=== PATIENT | male | born 1980 | race Caucasian/White ===

== ENCOUNTER 2022-01-30 16:11 | Emergency (ER) | payer MEDICARE ==
[2022-01-30 17:06] LABS: #Eosinphils 0.1 thou/uL (0.0-0.7); #Lymphocytes 2.5 thou/uL (1.20-3.40); #Monocytes 0.6 thou/uL (0.11-0.59); #Neutrophils 4.7 thou/uL (1.40-6.50); %Basophils 0.6 % (0.0-1.0); %Eosinophils 1.7 % (0.0-10.0); %Lymphocytes 31.2 % (21.0-51.0); %Monocytes 7.3 % (0.0-10.0); %Neutrophils 59.2 % (42.0-75.0); Mean Corpuscular HGB CONC 34.7 g/dL (32.0-36.0); Mean Corpuscular Hemoglobin 30.8 pg (27.0-31.0); Mean Platelet Volume 7.7 fL (7.4-10.4); Platelet Count 270 thou/uL (130-400); Red Blood Cell (RBC) Count 4.87 mill/uL (4.70-6.10); White Blood Cell (WBC) Count 7.9 thou/uL (4.8-10.8)
[2022-01-30] MEDS ORDERED: Morphine 4 MG/ML VIAL ONE (17:32)
[2022-01-30] MEDS ORDERED: Ondansetron PF 4 MG/2 ML Vial ONE (17:32)
[2022-01-30 17:50] LABS: ALT (SGPT) 44 U/L (8-55); AST (SGOT) 22 U/L (5-34); Albumin 4.4 g/dL (3.5-5.0); Alkaline Phosphatase 82 U/L (40-110); Anion Gap 12 mmol/L (10-20); BUN (Urea Nitrogen) 13 mg/dL (8.9-20.6); Bilirubin, Total 0.6 mg/dL (0.2-1.2); CK (CPK) 57 U/L (30-200); Calc. Creatinine Clearance 0 mL/min (70-130); Calcium 8.8 mg/dL (7.8-10.44); Carbon Dioxide 28 mmol/L (22-29); Chloride 101 mmol/L (98-107); Globulin 2.4 g/dL (2.4-3.5); Glucose 198 mg/dL (70-105); Lipase 195 U/L (8-78); Potassium 4.6 mmol/L (3.5-5.1); Protein, Total 6.8 g/dL (6.0-8.3); Sodium 136 mmol/L (136-145)
[2022-01-30] MEDS ORDERED: Ketorolac Tromethamine 30 MG/ML VIAL ONE (18:35)
== END 2022-01-30 18:58 | disposition home or self-care (01) ==
LOC: ERS 16:11
DX: K85.90 Acute pancreatitis without necrosis or infection, unspecified (principal); E11.9 Type 2 diabetes mellitus without complications; F17.220 Nicotine dependence, chewing tobacco, uncomplicated; F17.200 Nicotine dependence, unspecified, uncomplicated
CPT/HCPCS: 36415; 71045; 80053; 82550; 83690; 84484; 85025; 93005; 96374; 96375; J1885; J2270; J2405

== ENCOUNTER 2022-03-07 09:00 | Outpatient (CLI) | payer MEDICARE ==
[2022-03-07 09:18] LABS: Estimated GFR-MDRD - POC Greater than 90
[2022-03-07] MEDS ORDERED: Iopamidol-370 76% 500 ML 1 ML ONE (10:00)
== END 2022-03-07 09:01 | disposition home or self-care (01) ==
LOC: BICCT 09:00
PROVIDERS: ATTEND Internal Medicine
DX: K21.9 Gastro-esophageal reflux disease without esophagitis (principal); K85.90 Acute pancreatitis without necrosis or infection, unspecified; R16.0 Hepatomegaly, not elsewhere classified
CPT/HCPCS: 74177; 82565; Q9967

== ENCOUNTER 2022-05-08 00:04 | Inpatient (IN) | payer MEDICARE, OTHER ==
[2022-05-08] MEDS ORDERED: Morphine 4 MG/ML VIAL ONE (02:13)
[2022-05-08] MEDS ORDERED: Acetaminophen 650 MG Suppository PR PRN (02:23)
[2022-05-08] MEDS ORDERED: Promethazine HCl 25 MG/ML VIAL IM PRN (02:23)
[2022-05-08] MEDS ORDERED: Ondansetron ODT 4 MG TAB PO PRN (02:23)
[2022-05-08] MEDS ORDERED: Lorazepam 1 MG TAB PO PRN (02:28)
[2022-05-08] MEDS ORDERED: Morphine 4 MG/ML VIAL SLOW IVP SCH (02:30)
[2022-05-08] MEDS ORDERED: Ketorolac Tromethamine 30 MG/ML VIAL IVP PRN (02:30)
[2022-05-08] MEDS ORDERED: Morphine 4 MG/ML VIAL SLOW IVP PRN (02:36)
[2022-05-08] MEDS ORDERED: Pantoprazole 40 MG VIAL IVP SCH (02:45)
[2022-05-08] MEDS ORDERED: DULoxetine 30 MG CAP PO SCH (02:45)
[2022-05-08 02:47] VITALS: BMI 33.9
[2022-05-08] MEDS ORDERED: Propranolol 60 MG TAB PO SCH (03:00)
[2022-05-08] MEDS: clonazePAM 1 MG TAB PO PRN ×2 (03:12→13:05)
[2022-05-08] MEDS: Sodium Chloride 0.9% 1,000 ML IV SCH ×6 (03:16→23:45)
[2022-05-08] MEDS ORDERED: Aspirin 325 MG TAB PO SCH (04:00)
[2022-05-08] MEDS: Nitroglycerin 0.4 MG TAB (25 Tab Bottle) SL PRN ×2 (04:19→13:10)
[2022-05-08 04:27] LABS: #Basophils 0.1 thou/uL (0.0-0.2); #Eosinphils 0.2 thou/uL (0.0-0.7); #Lymphocytes 3.1 thou/uL (1.20-3.40); #Monocytes 0.6 thou/uL (0.11-0.59); #Neutrophils 4.9 thou/uL (1.40-6.50); %Basophils 0.8 % (0.0-1.0); %Eosinophils 1.7 % (0.0-10.0); %Lymphocytes 35.1 % (21.0-51.0); %Monocytes 6.3 % (0.0-10.0); Hemoglobin 15.1 g/dL (14.0-18.0); Mean Corpuscular HGB CONC 36.1 g/dL (32.0-36.0); Mean Corpuscular Hemoglobin 31.7 pg (27.0-31.0); Mean Corpuscular Volume 87.7 fL (78.0-98.0); Mean Platelet Volume 7.6 fL (7.4-10.4); Platelet Count 240 thou/uL (130-400); RBC Distribution Width 11.1 % (11.5-14.5); Red Blood Cell (RBC) Count 4.77 mill/uL (4.70-6.10); White Blood Cell (WBC) Count 8.8 thou/uL (4.8-10.8)
[2022-05-08 04:34] LABS: Anion Gap 14 mmol/L (10-20); BUN (Urea Nitrogen) 11 mg/dL (8.9-20.6); Calc. Creatinine Clearance 167 mL/min (70-130); Calcium 8.4 mg/dL (7.8-10.44); Carbon Dioxide 25 mmol/L (22-29); Chloride 103 mmol/L (98-107); Glucose 174 mg/dL (70-105); Potassium 3.7 mmol/L (3.5-5.1); Sodium 138 mmol/L (136-145); Triglycerides 315 mg/dL (Less than 150)
[2022-05-08 04:39] LABS: Troponin I Less than 0.010 ng/mL (< 0.028)
[2022-05-08] MEDS ORDERED: Dextrose 50% Abboject 50 ML SYRINGE SLOW IVP PRN (05:08)
[2022-05-08] MEDS ORDERED: Dextrose 5% in Water 1,000 ML IV PRN (05:08)
[2022-05-08] MEDS: Enoxaparin Sodium 40 MG/0.4 ML SYRINGE SC SCH (10:31)
[2022-05-08] MEDS: Fentanyl 100 MCG/2 ML VIAL SLOW IVP PRN ×4 (13:01→21:30)
[2022-05-08] MEDS: Acetaminophen 325 MG TAB PO PRN ×2 (14:07→19:02)
[2022-05-08] MEDS: HumaLOG 300 UNITS/3 ML VIAL SC PRN (14:10)
[2022-05-08] MEDS: DULoxetine 30 MG CAP PO SCH (20:58)
[2022-05-08] MEDS: Propranolol 60 MG TAB PO SCH (20:58)
[2022-05-08] MEDS ORDERED: Zolpidem Tartrate 5 MG TAB PO SCH (22:45)
[2022-05-09] MEDS: Fentanyl 100 MCG/2 ML VIAL SLOW IVP PRN ×7 (00:19→21:36)
[2022-05-09] MEDS: Acetaminophen 325 MG TAB PO PRN ×4 (00:24→21:28)
[2022-05-09] MEDS: Sodium Chloride 0.9% 1,000 ML IV SCH ×5 (04:00→21:42)
[2022-05-09 05:33] LABS: #Eosinphils 0.2 thou/uL (0.0-0.7); #Monocytes 0.5 thou/uL (0.11-0.59); #Neutrophils 3.7 thou/uL (1.40-6.50); %Basophils 0.4 % (0.0-1.0); %Eosinophils 2.8 % (0.0-10.0); %Lymphocytes 31.2 % (21.0-51.0); %Monocytes 7.2 % (0.0-10.0); %Neutrophils 58.5 % (42.0-75.0); Hemoglobin 14.1 g/dL (14.0-18.0); Mean Corpuscular HGB CONC 35.4 g/dL (32.0-36.0); Mean Corpuscular Hemoglobin 31.4 pg (27.0-31.0); Mean Corpuscular Volume 88.8 fL (78.0-98.0); Mean Platelet Volume 7.3 fL (7.4-10.4); Platelet Count 217 thou/uL (130-400); Red Blood Cell (RBC) Count 4.48 mill/uL (4.70-6.10); White Blood Cell (WBC) Count 6.3 thou/uL (4.8-10.8)
[2022-05-09] MEDS: clonazePAM 1 MG TAB PO PRN ×2 (05:36→21:28)
[2022-05-09 05:59] LABS: ALT (SGPT) 65 U/L (8-55); AST (SGOT) 46 U/L (5-34); Albumin 3.6 g/dL (3.5-5.0); Alkaline Phosphatase 66 U/L (40-110); Bilirubin, Direct 0.2 mg/dL (0.1-0.3); Bilirubin, Total 0.7 mg/dL (0.2-1.2); Phosphorus 3.5 mg/dL (2.3-4.7); Protein, Total 6.2 g/dL (6.0-8.3)
[2022-05-09 06:00] LABS: Anion Gap 11 mmol/L (10-20); BUN (Urea Nitrogen) 5 mg/dL (8.9-20.6); Calc. Creatinine Clearance 193 mL/min (70-130); Calcium 8.3 mg/dL (7.8-10.44); Carbon Dioxide 25 mmol/L (22-29); Chloride 104 mmol/L (98-107); Glucose 155 mg/dL (70-105); Lipase 47 U/L (8-78); Magnesium 1.7 mg/dL (1.6-2.6); Potassium 3.8 mmol/L (3.5-5.1); Sodium 136 mmol/L (136-145)
[2022-05-09] MEDS: Enoxaparin Sodium 40 MG/0.4 ML SYRINGE SC SCH (08:08)
[2022-05-09] MEDS: Pantoprazole 40 MG VIAL IVP SCH (08:08)
[2022-05-09] MEDS ORDERED: Fentanyl 100 MCG/2 ML VIAL ONE (12:02)
[2022-05-09] MEDS ORDERED: PROPOFOL 200 MG/20 ML VIAL ONE (12:05)
[2022-05-09] MEDS ORDERED: Lidocaine 1% PF 5 ML VIAL ONE (12:05)
[2022-05-09] MEDS: Nitroglycerin 0.4 MG TAB (25 Tab Bottle) SL PRN (14:39)
[2022-05-09 18:34] LABS: Troponin I Less than 0.010 ng/mL (< 0.028)
[2022-05-09] MEDS: Propranolol 60 MG TAB PO SCH (21:27)
[2022-05-09] MEDS: DULoxetine 30 MG CAP PO SCH (21:27)
[2022-05-10] MEDS: Fentanyl 100 MCG/2 ML VIAL SLOW IVP PRN ×3 (01:17→11:15)
[2022-05-10] MEDS: Sodium Chloride 0.9% 1,000 ML IV SCH ×4 (02:30→18:33)
[2022-05-10 05:18] LABS: #Eosinphils 0.2 thou/uL (0.0-0.7); #Lymphocytes 2.1 thou/uL (1.20-3.40); #Monocytes 0.6 thou/uL (0.11-0.59); #Neutrophils 3.1 thou/uL (1.40-6.50); %Basophils 0.5 % (0.0-1.0); %Eosinophils 3.3 % (0.0-10.0); %Lymphocytes 34.8 % (21.0-51.0); %Monocytes 9.3 % (0.0-10.0); %Neutrophils 52.1 % (42.0-75.0); Hemoglobin 14.3 g/dL (14.0-18.0); Mean Corpuscular HGB CONC 35.4 g/dL (32.0-36.0); Mean Corpuscular Hemoglobin 31.8 pg (27.0-31.0); Mean Platelet Volume 7.3 fL (7.4-10.4); Platelet Count 225 thou/uL (130-400); RBC Distribution Width 11.2 % (11.5-14.5); Red Blood Cell (RBC) Count 4.49 mill/uL (4.70-6.10); White Blood Cell (WBC) Count 5.9 thou/uL (4.8-10.8)
[2022-05-10 05:42] LABS: ALT (SGPT) 60 U/L (8-55); AST (SGOT) 32 U/L (5-34); Albumin 3.6 g/dL (3.5-5.0); Alkaline Phosphatase 62 U/L (40-110); Anion Gap 14 mmol/L (10-20); BUN (Urea Nitrogen) Less than 4 mg/dL (8.9-20.6); Bilirubin, Total 0.5 mg/dL (0.2-1.2); Calc. Creatinine Clearance 181 mL/min (70-130); Carbon Dioxide 21 mmol/L (22-29); Chloride 106 mmol/L (98-107); Globulin 2.4 g/dL (2.4-3.5); Glucose 190 mg/dL (70-105); Lipase 66 U/L (8-78); Sodium 137 mmol/L (136-145)
[2022-05-10] MEDS: Acetaminophen 325 MG TAB PO PRN (11:13)
[2022-05-10] MEDS: Pantoprazole 40 MG VIAL IVP SCH (11:19)
[2022-05-10] MEDS: Enoxaparin Sodium 40 MG/0.4 ML SYRINGE SC SCH (11:23)
[2022-05-10] MEDS ORDERED: Fioricet 325/50/40 mg Tablet PO PRN (11:31)
[2022-05-10] MEDS: HumaLOG 300 UNITS/3 ML VIAL SC PRN ×2 (13:22→18:15)
[2022-05-10] MEDS: Morphine 4 MG/ML VIAL SLOW IVP SCH ×2 (17:15→20:39)
[2022-05-10] MEDS: clonazePAM 1 MG TAB PO PRN (18:12)
[2022-05-10] MEDS: Propranolol 60 MG TAB PO SCH (20:34)
[2022-05-10] MEDS: Famotidine 20 MG TAB PO SCH (20:34)
[2022-05-10] MEDS: DULoxetine 30 MG CAP PO SCH (20:34)
[2022-05-10] MEDS ORDERED: Lorazepam 2 MG/ML VIAL SLOW IVP SCH (21:45)
[2022-05-11] MEDS: Morphine 4 MG/ML VIAL SLOW IVP SCH ×9 (00:06→23:55)
[2022-05-11] MEDS: Sodium Chloride 0.9% 1,000 ML IV SCH ×5 (00:06→23:00)
[2022-05-11] MEDS: Acetaminophen 325 MG TAB PO PRN ×2 (03:13→14:34)
[2022-05-11] MEDS: Ondansetron PF 4 MG/2 ML Vial IVP PRN ×2 (03:13→15:42)
[2022-05-11 06:13] LABS: #Eosinphils 0.2 thou/uL (0.0-0.7); #Lymphocytes 2.4 thou/uL (1.20-3.40); #Monocytes 0.7 thou/uL (0.11-0.59); #Neutrophils 5.5 thou/uL (1.40-6.50); %Basophils 0.5 % (0.0-1.0); %Eosinophils 2.2 % (0.0-10.0); %Monocytes 7.7 % (0.0-10.0); %Neutrophils 62.7 % (42.0-75.0); Hemoglobin 15.2 g/dL (14.0-18.0); Mean Corpuscular HGB CONC 35.9 g/dL (32.0-36.0); Mean Platelet Volume 7.1 fL (7.4-10.4); Platelet Count 249 thou/uL (130-400); RBC Distribution Width 11.2 % (11.5-14.5); Red Blood Cell (RBC) Count 4.75 mill/uL (4.70-6.10); White Blood Cell (WBC) Count 8.8 thou/uL (4.8-10.8)
[2022-05-11 06:34] LABS: Anion Gap 14 mmol/L (10-20); BUN (Urea Nitrogen) 4 mg/dL (8.9-20.6); Calc. Creatinine Clearance 186 mL/min (70-130); Calcium 8.8 mg/dL (7.8-10.44); Carbon Dioxide 23 mmol/L (22-29); Chloride 102 mmol/L (98-107); Glucose 189 mg/dL (70-105); Lipase 43 U/L (8-78); Potassium 4.2 mmol/L (3.5-5.1); Sodium 135 mmol/L (136-145)
[2022-05-11] MEDS: clonazePAM 1 MG TAB PO PRN (09:50)
[2022-05-11] MEDS: Famotidine 20 MG TAB PO SCH ×2 (09:51→20:15)
[2022-05-11] MEDS: Enoxaparin Sodium 40 MG/0.4 ML SYRINGE SC SCH (09:51)
[2022-05-11] MEDS: clonazePAM 1 MG TAB PO SCH ×2 (15:40→20:15)
[2022-05-11] MEDS: HumaLOG 300 UNITS/3 ML VIAL SC PRN ×2 (17:54→20:14)
[2022-05-11] MEDS: DULoxetine 30 MG CAP PO SCH (20:15)
[2022-05-11] MEDS: Propranolol 60 MG TAB PO SCH (20:45)
[2022-05-12] MEDS: Sodium Chloride 0.9% 1,000 ML IV SCH ×6 (03:06→23:37)
[2022-05-12] MEDS: Morphine 4 MG/ML VIAL SLOW IVP SCH ×9 (03:06→23:37)
[2022-05-12 05:44] LABS: #Eosinphils 0.2 thou/uL (0.0-0.7); #Lymphocytes 2.2 thou/uL (1.20-3.40); #Monocytes 0.6 thou/uL (0.11-0.59); #Neutrophils 2.8 thou/uL (1.40-6.50); %Basophils 0.7 % (0.0-1.0); %Eosinophils 2.8 % (0.0-10.0); %Lymphocytes 38.5 % (21.0-51.0); %Monocytes 9.8 % (0.0-10.0); %Neutrophils 48.2 % (42.0-75.0); Hemoglobin 14.1 g/dL (14.0-18.0); Mean Corpuscular HGB CONC 34.9 g/dL (32.0-36.0); Mean Corpuscular Hemoglobin 31.2 pg (27.0-31.0); Mean Corpuscular Volume 89.4 fL (78.0-98.0); Mean Platelet Volume 7.3 fL (7.4-10.4); Platelet Count 235 thou/uL (130-400); RBC Distribution Width 11.2 % (11.5-14.5); Red Blood Cell (RBC) Count 4.51 mill/uL (4.70-6.10); White Blood Cell (WBC) Count 5.7 thou/uL (4.8-10.8)
[2022-05-12 06:07] LABS: ALT (SGPT) 82 U/L (8-55); AST (SGOT) 48 U/L (5-34); Albumin 3.6 g/dL (3.5-5.0); Alkaline Phosphatase 73 U/L (40-110); Anion Gap 11 mmol/L (10-20); BUN (Urea Nitrogen) 4 mg/dL (8.9-20.6); Bilirubin, Total 0.4 mg/dL (0.2-1.2); Calc. Creatinine Clearance 181 mL/min (70-130); Calcium 8.6 mg/dL (7.8-10.44); Carbon Dioxide 25 mmol/L (22-29); Chloride 106 mmol/L (98-107); Globulin 2.6 g/dL (2.4-3.5); Glucose 192 mg/dL (70-105); Potassium 4.4 mmol/L (3.5-5.1); Protein, Total 6.2 g/dL (6.0-8.3); Sodium 138 mmol/L (136-145)
[2022-05-12] MEDS: Enoxaparin Sodium 40 MG/0.4 ML SYRINGE SC SCH (09:05)
[2022-05-12] MEDS: clonazePAM 1 MG TAB PO SCH ×3 (09:05→20:32)
[2022-05-12] MEDS: Famotidine 20 MG TAB PO SCH ×2 (09:06→20:31)
[2022-05-12] MEDS ORDERED: Lidocaine 1% w/Epinephrine 1:100K 20 ML VIAL ONE (10:04)
[2022-05-12] MEDS ORDERED: Bupivacaine 0.25% HCL 30 ML VIAL ONE (10:04)
[2022-05-12] MEDS ORDERED: Iopamidol 30 ML ONE (10:04)
[2022-05-12] MEDS ORDERED: Meperidine HCl/PF 25 MG/ML VIAL ONE (10:11)
[2022-05-12] MEDS ORDERED: fentaNYL Citrate/PF 100 MCG/2 ML SYRINGE ONE (10:11)
[2022-05-12] MEDS ORDERED: SUGAMMADEX SODIUM 200 MG/2 ML VIAL ONE (10:12)
[2022-05-12] MEDS ORDERED: Famotidine/PF 20 mg/2ml Vial ONE (10:12)
[2022-05-12] MEDS ORDERED: Bupivacaine PF 0.5% 30 ML VIAL ONE (10:13)
[2022-05-12] MEDS ORDERED: Midazolam HCl 2 mg/2 ml Vial ONE (10:14)
[2022-05-12] MEDS ORDERED: CEFAZOLIN 2 GM VIAL ONE (10:24)
[2022-05-12] MEDS ORDERED: Sodium Chloride 0.9% 0 ML ONE (10:24)
[2022-05-12] MEDS ORDERED: Sodium Chloride 0.9% 100 ML ONE (10:24)
[2022-05-12] MEDS ORDERED: ePHEDrine 50 MG/ML VIAL ONE (10:32)
[2022-05-12] MEDS ORDERED: Esmolol 100 MG/10 ML VIAL ONE (10:32)
[2022-05-12] MEDS ORDERED: Ketorolac Tromethamine 30 MG/ML VIAL ONE (10:32)
[2022-05-12] MEDS ORDERED: Dexamethasone 20 MG/5 ML VIAL ONE (10:32)
[2022-05-12] MEDS ORDERED: Metoclopramide HCl 10 MG/2 ML VIAL ONE (10:32)
[2022-05-12] MEDS ORDERED: PROPOFOL 200 MG/20 ML VIAL ONE (10:32)
[2022-05-12] MEDS ORDERED: Ondansetron PF 4 MG/2 ML Vial ONE (10:32)
[2022-05-12] MEDS ORDERED: Rocuronium Bromide 10 MG/ML (10ML VIAL) ONE (10:32)
[2022-05-12] MEDS ORDERED: Glycopyrrolate 0.2 MG/ML 5 ML SYRINGE ONE (10:32)
[2022-05-12] MEDS ORDERED: Lidocaine 1% PF 5 ML VIAL ONE (10:32)
[2022-05-12] MEDS ORDERED: Promethazine HCl 25 MG/ML VIAL IM PRN (11:35)
[2022-05-12] MEDS ORDERED: Meperidine HCl/PF 25 MG/ML VIAL SLOW IVP PRN (11:35)
[2022-05-12] MEDS ORDERED: Ondansetron HCl/PF 4 MG/2 ML Vial IVP PRN (11:35)
[2022-05-12] MEDS ORDERED: Promethazine HCl 25 MG/ML VIAL IVPB PRN (11:35)
[2022-05-12] MEDS ORDERED: hydrALAZINE 20 MG/ML VIAL ONE (12:01)
[2022-05-12] MEDS ORDERED: Fentanyl 100 MCG/2 ML VIAL ONE ×2 (12:36→13:07)
[2022-05-12] MEDS: HumaLOG 300 UNITS/3 ML VIAL SC PRN ×2 (18:20→23:43)
[2022-05-12] MEDS: DULoxetine 30 MG CAP PO SCH (20:31)
[2022-05-12] MEDS: Propranolol 60 MG TAB PO SCH (20:31)
[2022-05-13] MEDS: Morphine 4 MG/ML VIAL SLOW IVP SCH ×4 (03:48→09:43)
[2022-05-13] MEDS: Sodium Chloride 0.9% 1,000 ML IV SCH (05:27)
[2022-05-13] MEDS: HumaLOG 300 UNITS/3 ML VIAL SC PRN ×2 (06:22→11:17)
[2022-05-13] MEDS: Enoxaparin Sodium 40 MG/0.4 ML SYRINGE SC SCH (09:16)
[2022-05-13] MEDS: clonazePAM 1 MG TAB PO SCH ×2 (09:16→14:03)
[2022-05-13] MEDS: Famotidine 20 MG TAB PO SCH (09:16)
[2022-05-13] MEDS ORDERED: Ketorolac Tromethamine 10 MG TAB PO SCH (12:00)
[2022-05-13] MEDS ORDERED: HYDROcodone/Acetaminophen 5/325 mg Tablet PO PRN ×2 (12:11)
[2022-05-13 12:18] VITALS: BP 129/77; TEMP 98.2
[2022-05-13] MEDS ORDERED: Dextroamphetamine/Amphetamine [Adderall] 20 MG Tablet PO SCH (13:00)
[2022-05-13 13:37] LABS: ANA Symphony (Qualitative) Negative (Negative); ANA Symphony (Quantitative) 0.2 Ratio (< 0.7 Negative); dsDNA IgG Antibody 1.8 IU/mL (<10 Negative)
[2022-05-13] MEDS ORDERED: metFORMIN 500 MG TAB PO SCH (17:00)
[2022-05-14] MEDS ORDERED: Citrucel 500 MG TAB PO SCH (09:00)
[2022-05-14] MEDS ORDERED: Polyethylene Glycol 3350 17 GM Packet PO SCH (09:00)
== END 2022-05-13 15:46 | disposition home or self-care (01) | DRG 419 ==
LOC: MSONC 00:04
PROVIDERS: ADMIT Internal Medicine; ATTEND Internal Medicine
PROC: 0DB98ZX Excision of Duodenum, Via Natural or Artificial Opening Endoscopic, Diagnostic (ICD-10-PCS; 2022-05-09)
PROC: 0FT44ZZ Resection of Gallbladder, Percutaneous Endoscopic Approach (ICD-10-PCS; principal; 2022-05-12)
PROC: BF10YZZ Fluoroscopy of Bile Ducts using Other Contrast (ICD-10-PCS; 2022-05-12)
DX: K85.10 Biliary acute pancreatitis without necrosis or infection (principal); Z20.822 Contact with and (suspected) exposure to COVID-19; F43.10 Post-traumatic stress disorder, unspecified; K21.9 Gastro-esophageal reflux disease without esophagitis; E11.9 Type 2 diabetes mellitus without complications; K76.0 Fatty (change of) liver, not elsewhere classified; E66.9 Obesity, unspecified; F41.0 Panic disorder [episodic paroxysmal anxiety]; E78.1 Pure hyperglyceridemia; F41.9 Anxiety disorder, unspecified; G89.4 Chronic pain syndrome; F32.A Depression, unspecified; G43.909 Migraine, unspecified, not intractable, without status migrainosus; Z88.2 Allergy status to sulfonamides; Z88.5 Allergy status to narcotic agent; Z88.8 Allergy status to other drugs, medicaments and biological substances; Z88.1 Allergy status to other antibiotic agents; Z79.84 Long term (current) use of oral hypoglycemic drugs; Z79.899 Other long term (current) drug therapy; Z68.33 Body mass index [BMI] 33.0-33.9, adult
CPT/HCPCS: 36415; 36416; 47532; 71045; 80048; 80053; 80076; 82787; 83690; 83735; 84100; 84478; 84484; 85025; 86038; 86225; 88304; 88305; 93005; 93010; 94760; C1713; C9113; J0360; J0690; J1100; J1650; J1815; J1885; J2060; J2175; J2250; J2270; J2405; J2704; J2765; J3010; J3490; J7050; Q9967; S0020; S0028; U0003; U0005

== ENCOUNTER 2022-06-17 14:42 | Inpatient (IN) | payer MEDICARE, OTHER ==
[~2022-06-17 14:42] MED LIST: Iopamidol-370 76% 500 ML 1 ML ONE
[2022-06-17] MEDS ORDERED: Morphine 4 MG/ML VIAL ONE (15:10)
[2022-06-17] MEDS ORDERED: Ondansetron PF 4 MG/2 ML Vial ONE (15:10)
[2022-06-17 15:27] LABS: #Lymphocytes 1.3 thou/uL (1.20-3.40); #Monocytes 0.3 thou/uL (0.11-0.59); #Neutrophils 9.3 thou/uL (1.40-6.50); %Basophils 0.4 % (0.0-1.0); %Eosinophils 0.1 % (0.0-10.0); %Lymphocytes 11.8 % (21.0-51.0); %Monocytes 2.8 % (0.0-10.0); Mean Corpuscular HGB CONC 33.9 g/dL (32.0-36.0); Mean Corpuscular Hemoglobin 30.8 pg (27.0-31.0); Mean Corpuscular Volume 91.1 fL (78.0-98.0); Mean Platelet Volume 7.9 fL (7.4-10.4); Platelet Count 379 thou/uL (130-400); RBC Distribution Width 12.2 % (11.5-14.5)
[2022-06-17 15:38] LABS: ALT (SGPT) 72 U/L (8-55); AST (SGOT) 36 U/L (5-34); Albumin 5.2 g/dL (3.5-5.0); Alkaline Phosphatase 108 U/L (40-110); Anion Gap 22 mmol/L (10-20); BUN (Urea Nitrogen) 17 mg/dL (8.9-20.6); Bilirubin, Total 0.5 mg/dL (0.2-1.2); Calc. Creatinine Clearance 0 mL/min (70-130); Carbon Dioxide 17 mmol/L (22-29); Chloride 100 mmol/L (98-107); Estimated GFR 60; Globulin 3.1 g/dL (2.4-3.5); Glucose 454 mg/dL (70-105); Lipase 55 U/L (8-78); Magnesium 2.2 mg/dL (1.6-2.6); Potassium 4.9 mmol/L (3.5-5.1); Protein, Total 8.3 g/dL (6.0-8.3); Sodium 134 mmol/L (136-145)
[2022-06-17 15:43] LABS: Bilirubin Negative (Negative); Blood, Urine Negative (Negative); Clarity Clear (Clear); Glucose, Urine (Dipstick) Greater than 1000 mg/dL (Negative); Ketone, Urine Negative (Negative); Leukocyte Negative Leu/uL (Negative); Nitrite Negative (Negative); Protein, Urine (Dipstick) Negative (Neg-Trace); Specific Gravity, Urine 1.028 (1.002-1.036); Urobilinogen Normal mg/dL (Less than 2)
[2022-06-17 15:44] LABS: Actual Bicarbonate (HCO3v) 21 mEq/L (22-28); Base Excess -6.2 mEq/L (-2.0 to +3.0); Calcium, Ionized (venous) 1.15 mmol/L (1.16-1.32); Chloride (VBG) 101 mmol/L (98-106); Hemoglobin (Hb) 16.3 g/dL (13.2-17.3); Potassium (VBG) 4.79 mmol/L (3.70-5.30); Sodium 134.9 mmol/L (133-146); pH (venous) 7.28 (7.32-7.43)
[2022-06-17 15:48] LABS: Phosphorus 3.4 mg/dL (2.3-4.7)
[2022-06-17] MEDS ORDERED: Piperacillin/Tazobactam 3.375 GM VIAL ONE (16:29)
[2022-06-17] MEDS ORDERED: NS 0.9% w/ 20 MEQ KCL 1,000 ML ONE ×2 (16:29→18:46)
[2022-06-17] MEDS ORDERED: Sodium Chloride 0.9% 100 ML ONE (16:30)
[2022-06-17] MEDS ORDERED: INSULIN REGULAR IN 0.9 % NACL 100 UNIT/100 ML BAG ONE (16:32)
[2022-06-17] MEDS ORDERED: Acetaminophen 325 MG TAB PO PRN (18:38)
[2022-06-17 18:41] LABS: Lactic Acid 2.3 mmol/L (0.5-2.2)
[2022-06-17] MEDS ORDERED: HYDROcodone/Acetaminophen 10/325 mg Tablet ONE (19:34)
[2022-06-17] MEDS ORDERED: Nicotine 14 MG PATCH ONE (19:36)
[2022-06-17] MEDS: HYDROcodone/Acetaminophen 10/325 mg Tablet PO PRN ×2 (19:39→23:39)
[2022-06-17] MEDS: Nicotine 14 MG PATCH TD SCH (19:40)
[2022-06-17] MEDS: Sodium Chloride 0.9% 1,000 ML IV SCH (20:09)
[2022-06-17] MEDS ORDERED: Dextrose 50% Abboject 50 ML SYRINGE SLOW IVP PRN (21:05)
[2022-06-17] MEDS ORDERED: Dextrose 5% in Water 1,000 ML IV PRN (21:05)
[2022-06-17 21:29] LABS: SARS-CoV-2 NAA Rapid Test Not Detected (NotDetected)
[2022-06-17 22:53] LABS: Anion Gap 14 mmol/L (10-20); BUN (Urea Nitrogen) 11 mg/dL (8.9-20.6); Calc. Creatinine Clearance 174 mL/min (70-130); Calcium 8.5 mg/dL (7.8-10.44); Carbon Dioxide 22 mmol/L (22-29); Chloride 108 mmol/L (98-107); Estimated GFR 111; Glucose 152 mg/dL (70-105); Sodium 140 mmol/L (136-145)
[2022-06-17] MEDS ORDERED: Aripiprazole 10 MG TAB PO SCH (23:15)
[2022-06-17] MEDS: clonazePAM 1 MG TAB PO PRN (23:33)
[2022-06-17] MEDS: Heparin 5,000 UNITS/ML VIAL SC SCH (23:33)
[2022-06-18] MEDS: Sodium Chloride 0.9% 1,000 ML IV SCH ×2 (05:30→15:08)
[2022-06-18 06:49] LABS: #Eosinphils 0.1 thou/uL (0.0-0.7); #Lymphocytes 2.5 thou/uL (1.20-3.40); #Monocytes 0.5 thou/uL (0.11-0.59); #Neutrophils 4.9 thou/uL (1.40-6.50); %Basophils 0.5 % (0.0-1.0); %Eosinophils 1.1 % (0.0-10.0); %Lymphocytes 31.3 % (21.0-51.0); %Monocytes 6.6 % (0.0-10.0); %Neutrophils 60.4 % (42.0-75.0); Hemoglobin 13.2 g/dL (14.0-18.0); Mean Corpuscular HGB CONC 34.1 g/dL (32.0-36.0); Mean Corpuscular Hemoglobin 31.3 pg (27.0-31.0); Mean Corpuscular Volume 91.7 fL (78.0-98.0); Platelet Count 271 thou/uL (130-400); Red Blood Cell (RBC) Count 4.23 mill/uL (4.70-6.10); White Blood Cell (WBC) Count 8.1 thou/uL (4.8-10.8)
[2022-06-18 06:52] LABS: ALT (SGPT) 47 U/L (8-55); AST (SGOT) 25 U/L (5-34); Albumin 3.7 g/dL (3.5-5.0); Alkaline Phosphatase 61 U/L (40-110); Anion Gap 16 mmol/L (10-20); BUN (Urea Nitrogen) 9 mg/dL (8.9-20.6); Bilirubin, Total 0.6 mg/dL (0.2-1.2); Calc. Creatinine Clearance 182 mL/min (70-130); Calcium 8.5 mg/dL (7.8-10.44); Carbon Dioxide 21 mmol/L (22-29); Chloride 107 mmol/L (98-107); Estimated GFR 112; Globulin 2.4 g/dL (2.4-3.5); Glucose 115 mg/dL (70-105); Potassium 3.8 mmol/L (3.5-5.1); Protein, Total 6.1 g/dL (6.0-8.3); Sodium 140 mmol/L (136-145)
[2022-06-18] MEDS: HYDROcodone/Acetaminophen 10/325 mg Tablet PO PRN ×3 (07:43→21:29)
[2022-06-18] MEDS ORDERED: Enoxaparin Sodium 40 MG/0.4 ML SYRINGE SC SCH (09:00)
[2022-06-18] MEDS: Heparin 5,000 UNITS/ML VIAL SC SCH ×3 (09:26→21:30)
[2022-06-18] MEDS ORDERED: Morphine 4 MG/ML VIAL SLOW IVP SCH (10:00)
[2022-06-18 10:24] VITALS: BMI 34.0
[2022-06-18] MEDS ORDERED: DULoxetine 30 MG CAP PO SCH (21:00)
[2022-06-18] MEDS ORDERED: Aripiprazole 10 MG TAB PO SCH ×2 (21:00)
[2022-06-18] MEDS: Nicotine 14 MG PATCH TD SCH (21:28)
[2022-06-18] MEDS: clonazePAM 1 MG TAB PO PRN (21:29)
[2022-06-18] MEDS: Insulin Glargine 30 UNITS/0.3 ML VIAL SC SCH (21:30)
[2022-06-19] MEDS: Sodium Chloride 0.9% 1,000 ML IV SCH ×2 (00:05→08:30)
[2022-06-19] MEDS: HYDROcodone/Acetaminophen 10/325 mg Tablet PO PRN ×2 (05:02→11:52)
[2022-06-19] MEDS: HumaLOG 300 UNITS/3 ML VIAL SC PRN ×2 (05:03→11:53)
[2022-06-19 06:10] LABS: #Eosinphils 0.1 thou/uL (0.0-0.7); #Monocytes 0.4 thou/uL (0.11-0.59); #Neutrophils 2.2 thou/uL (1.40-6.50); %Eosinophils 2.4 % (0.0-10.0); %Lymphocytes 42.1 % (21.0-51.0); %Monocytes 7.9 % (0.0-10.0); %Neutrophils 46.6 % (42.0-75.0); Hemoglobin 13.4 g/dL (14.0-18.0); Mean Corpuscular HGB CONC 34.7 g/dL (32.0-36.0); Mean Corpuscular Hemoglobin 31.5 pg (27.0-31.0); Mean Corpuscular Volume 90.8 fL (78.0-98.0); Mean Platelet Volume 7.8 fL (7.4-10.4); Platelet Count 242 thou/uL (130-400); RBC Distribution Width 11.7 % (11.5-14.5); Red Blood Cell (RBC) Count 4.26 mill/uL (4.70-6.10); White Blood Cell (WBC) Count 4.8 thou/uL (4.8-10.8)
[2022-06-19 06:36] LABS: ALT (SGPT) 59 U/L (8-55); AST (SGOT) 34 U/L (5-34); Albumin 3.6 g/dL (3.5-5.0); Alkaline Phosphatase 74 U/L (40-110); Anion Gap 12 mmol/L (10-20); BUN (Urea Nitrogen) 8 mg/dL (8.9-20.6); Bilirubin, Total 0.2 mg/dL (0.2-1.2); Calc. Creatinine Clearance 178 mL/min (70-130); Calcium 8.7 mg/dL (7.8-10.44); Carbon Dioxide 27 mmol/L (22-29); Chloride 105 mmol/L (98-107); Estimated GFR 112; Globulin 2.8 g/dL (2.4-3.5); Glucose 183 mg/dL (70-105); Potassium 3.8 mmol/L (3.5-5.1); Protein, Total 6.4 g/dL (6.0-8.3); Sodium 140 mmol/L (136-145)
[2022-06-19] MEDS: Insulin Glargine 30 UNITS/0.3 ML VIAL SC SCH (08:30)
[2022-06-19] MEDS: Heparin 5,000 UNITS/ML VIAL SC SCH (08:30)
[2022-06-19 13:29] VITALS: BP 134/83; TEMP 98.1
[2022-06-19] MEDS: AMPHETAMINE PO SCH (13:32)
[2022-06-19] MEDS: DEXTROAMPHETAMINE PO SCH (13:32)
== END 2022-06-19 12:50 | disposition home or self-care (01) | DRG 638 ==
LOC: ERS 14:42 → ERHOLD 17:24 → CCU 22:25 → T4-A 06-18 13:25
PROVIDERS: ADMIT Internal Medicine; ATTEND Internal Medicine
DX: E11.10 Type 2 diabetes mellitus with ketoacidosis without coma (principal); N17.9 Acute kidney failure, unspecified; K86.1 Other chronic pancreatitis; F31.9 Bipolar disorder, unspecified; F43.10 Post-traumatic stress disorder, unspecified; F41.9 Anxiety disorder, unspecified; F17.220 Nicotine dependence, chewing tobacco, uncomplicated; E66.9 Obesity, unspecified; Z20.822 Contact with and (suspected) exposure to COVID-19; M19.90 Unspecified osteoarthritis, unspecified site; E78.5 Hyperlipidemia, unspecified; Z88.2 Allergy status to sulfonamides; Z88.8 Allergy status to other drugs, medicaments and biological substances; Z79.84 Long term (current) use of oral hypoglycemic drugs; Z79.899 Other long term (current) drug therapy; Z98.890 Other specified postprocedural states; Z88.5 Allergy status to narcotic agent; Z68.33 Body mass index [BMI] 33.0-33.9, adult
CPT/HCPCS: 36415; 36416; 71045; 74177; 80053; 81003; 82010; 82805; 83605; 83690; 83735; 84100; 84478; 84484; 85025; 87040; 93005; 94760; J1644; J1815; J2270; J2405; J2543; J3480; J3490; J7050; Q9967; U0002

== ENCOUNTER 2022-10-04 17:33 | Emergency (ER) | payer OTHER ==
[2022-10-04] MEDS ORDERED: Acetaminophen 500 MG TAB ONE (18:16)
[2022-10-04] MEDS ORDERED: Ketorolac Tromethamine 30 MG/ML VIAL ONE (18:16)
== END 2022-10-04 18:42 | disposition home or self-care (01) ==
LOC: ERS 17:33
DX: K02.9 Dental caries, unspecified (principal); K04.01 Reversible pulpitis; K21.9 Gastro-esophageal reflux disease without esophagitis; E11.9 Type 2 diabetes mellitus without complications; F17.220 Nicotine dependence, chewing tobacco, uncomplicated
CPT/HCPCS: 96372; 99283; J1885

== ENCOUNTER 2022-11-10 16:59 | Emergency (ER) | payer OTHER ==
[2022-11-10 17:25] LABS: #Eosinphils 0.1 thou/uL (0.0-0.7); #Lymphocytes 2.3 thou/uL (1.20-3.40); #Monocytes 0.7 thou/uL (0.11-0.59); #Neutrophils 6.7 thou/uL (1.40-6.50); %Basophils 0.4 % (0.0-1.0); %Eosinophils 0.8 % (0.0-10.0); %Lymphocytes 22.8 % (21.0-51.0); %Monocytes 7.5 % (0.0-10.0); %Neutrophils 68.4 % (42.0-75.0); Hemoglobin 16.5 g/dL (14.0-18.0); Mean Corpuscular HGB CONC 34.8 g/dL (32.0-36.0); Mean Corpuscular Hemoglobin 31.8 pg (27.0-31.0); Mean Corpuscular Volume 91.3 fl (78.0-98.0); Mean Platelet Volume 7.8 fL (7.4-10.4); Platelet Count 261 10x3/uL (130-400); RBC Distribution Width 12.1 % (11.5-14.5); Red Blood Cell (RBC) Count 5.21 mill/uL (4.70-6.10); White Blood Cell (WBC) Count 9.9 10x3/uL (4.8-10.8)
[2022-11-10 17:47] LABS: ALT (SGPT) 59 U/L (8-55); AST (SGOT) 33 U/L (5-34); Albumin 4.6 g/dL (3.5-5.0); Alkaline Phosphatase 92 U/L (40-110); Anion Gap 16 mmol/L (10-20); BUN (Urea Nitrogen) 8 mg/dL (8.9-20.6); Bilirubin, Total 0.8 mg/dL (0.2-1.2); Calc. Creatinine Clearance 0 mL/min (70-130); Calcium 9.1 mg/dL (7.8-10.44); Carbon Dioxide 24 mmol/L (22-29); Chloride 100 mmol/L (98-107); Estimated GFR 83; Globulin 3.1 g/dL (2.4-3.5); Glucose 347 mg/dL (70-105); Lipase 182 U/L (8-78); Potassium 4.4 mmol/L (3.5-5.1); Protein, Total 7.7 g/dL (6.0-8.3); Sodium 136 mmol/L (136-145)
[2022-11-10] MEDS ORDERED: Ondansetron PF 4 MG/2 ML Vial ONE (20:12)
[2022-11-10] MEDS ORDERED: Morphine 4 MG/ML VIAL ONE ×2 (20:12→23:02)
== END 2022-11-11 00:22 | disposition home or self-care (01) ==
LOC: ERS 16:59
DX: R10.9 Unspecified abdominal pain (principal); R07.9 Chest pain, unspecified; K21.9 Gastro-esophageal reflux disease without esophagitis; E11.9 Type 2 diabetes mellitus without complications; F17.220 Nicotine dependence, chewing tobacco, uncomplicated; Z79.899 Other long term (current) drug therapy
CPT/HCPCS: 71045; 74177; 80053; 83690; 84484; 85025; 93005; 96374; 96375; 96376; J2270; J2405; Q9967

== ENCOUNTER 2022-12-05 04:15 | Emergency (ER) | payer OTHER ==
[2022-12-05 04:58] LABS: #Eosinphils 0.3 thou/uL (0.0-0.7); #Lymphocytes 2.4 thou/uL (1.20-3.40); #Monocytes 0.7 thou/uL (0.11-0.59); #Neutrophils 3.6 thou/uL (1.40-6.50); %Basophils 0.7 % (0.0-1.0); %Eosinophils 3.7 % (0.0-10.0); %Lymphocytes 34.7 % (21.0-51.0); %Monocytes 9.4 % (0.0-10.0); %Neutrophils 51.5 % (42.0-75.0); Hemoglobin 16.4 g/dL (14.0-18.0); Mean Corpuscular HGB CONC 35.2 g/dL (32.0-36.0); Mean Corpuscular Hemoglobin 31.4 pg (27.0-31.0); Mean Corpuscular Volume 89.1 fl (78.0-98.0); Mean Platelet Volume 8.2 fL (7.4-10.4); Platelet Count 241 10x3/uL (130-400); RBC Distribution Width 11.2 % (11.5-14.5); Red Blood Cell (RBC) Count 5.23 mill/uL (4.70-6.10); White Blood Cell (WBC) Count 6.9 10x3/uL (4.8-10.8)
[2022-12-05] MEDS ORDERED: Morphine 4 MG/ML VIAL ONE ×2 (05:02→06:55)
[2022-12-05 07:12] LABS: ALT (SGPT) 64 U/L (8-55); AST (SGOT) 29 U/L (5-34); Alkaline Phosphatase 115 U/L (40-110); Anion Gap 16 mmol/L (10-20); BUN (Urea Nitrogen) 16 mg/dL (8.9-20.6); Bilirubin, Total 0.4 mg/dL (0.2-1.2); Calc. Creatinine Clearance 0 mL/min (70-130); Calcium 8.8 mg/dL (7.8-10.44); Carbon Dioxide 29 mmol/L (22-29); Chloride 96 mmol/L (98-107); Estimated GFR 79; Globulin 2.9 g/dL (2.4-3.5); Glucose 275 mg/dL (70-105); Potassium 4.6 mmol/L (3.5-5.1); Protein, Total 6.9 g/dL (6.0-8.3); Sodium 136 mmol/L (136-145)
[2022-12-05] MEDS ORDERED: Iopamidol-370 76% 500 ML 1 ML ONE (10:13)
== END 2022-12-05 07:52 | disposition home or self-care (01) ==
LOC: ERS 04:15
DX: R10.13 Epigastric pain (principal); K76.89 Other specified diseases of liver; K86.1 Other chronic pancreatitis; K21.9 Gastro-esophageal reflux disease without esophagitis; E11.9 Type 2 diabetes mellitus without complications; F17.220 Nicotine dependence, chewing tobacco, uncomplicated
CPT/HCPCS: 71045; 74177; 80053; 83690; 84484; 85025; 93005; 96374; 96376; J2270

== ENCOUNTER 2023-02-12 13:06 | Outpatient (CLI) | payer OTHER | END 2023-02-12 13:07 | disposition home or self-care (01) | LOC: DTY/OP 13:06 | PROVIDERS: ATTEND Specialist | DX: E66.01 Morbid (severe) obesity due to excess calories (principal); E11.9 Type 2 diabetes mellitus without complications; K21.9 Gastro-esophageal reflux disease without esophagitis | CPT/HCPCS: 97802 ==

== ENCOUNTER 2023-05-07 14:30 | Inpatient (IN) | payer OTHER ==
[2023-05-07 14:49] VITALS: BMI 36.8
[2023-05-12] MEDS ORDERED: Heparin 5,000 UNITS/ML VIAL ONE (06:09)
[2023-05-12] MEDS ORDERED: Bupivacaine/Epinephrine 0.25% 30 ML VIAL ONE (06:42)
[2023-05-12] MEDS ORDERED: Ketamine 50 MG/ML (10ML VIAL) ONE (06:54)
[2023-05-12] MEDS ORDERED: fentaNYL PF 100 MCG/2 ML SYRINGE ONE (06:54)
[2023-05-12] MEDS ORDERED: Propofol 500 MG/50 ML VIAL ONE (06:55)
[2023-05-12] MEDS ORDERED: Midazolam HCl 2 mg/2 ml Vial ONE (07:17)
[2023-05-12] MEDS ORDERED: HYDROmorphone 0.5 MG/0.5 ML SYRINGE ONE (07:30)
[2023-05-12] MEDS ORDERED: Sodium Chloride 0.9% 100 ML ONE (07:32)
[2023-05-12] MEDS ORDERED: CEFAZOLIN 2 GM VIAL ONE (07:32)
[2023-05-12] MEDS ORDERED: Dexmedetomidine 200 MCG/2 ML VIAL ONE (07:36)
[2023-05-12] MEDS ORDERED: GLYCOPYRROLATE/PF 0.2 MG/ML VIAL ONE (07:46)
[2023-05-12] MEDS ORDERED: Ketorolac Tromethamine 30 MG/ML VIAL ONE (07:46)
[2023-05-12] MEDS ORDERED: Ondansetron PF 4 MG/2 ML Vial ONE (07:46)
[2023-05-12] MEDS ORDERED: Lidocaine 1% PF 5 ML VIAL ONE (07:46)
[2023-05-12] MEDS ORDERED: PHENYLEPHRINE-NS 100 MCG/ML 10 ML SYRINGE ONE (07:46)
[2023-05-12] MEDS ORDERED: ePHEDrine Sulfate 50 MG/10 ML VIAL ONE (07:46)
[2023-05-12] MEDS ORDERED: Rocuronium Bromide 10 MG/ML (10ML VIAL) ONE (07:46)
[2023-05-12] MEDS ORDERED: PROPOFOL 200 MG/20 ML VIAL ONE (07:46)
[2023-05-12] MEDS ORDERED: Dexamethasone 20 MG/5 ML VIAL ONE (07:46)
[2023-05-12] MEDS ORDERED: Vasopressin 20 UNITS/ML VIAL ONE (08:23)
[2023-05-12] MEDS ORDERED: fentaNYL 50 mcg/mL 1 mL Vial ONE ×4 (10:27→11:34)
[2023-05-12] MEDS ORDERED: Morphine 4 MG/ML VIAL ONE (11:06)
[2023-05-12] MEDS ORDERED: Ondansetron PF 4 MG/2 ML Vial IVP PRN (11:07)
[2023-05-12] MEDS ORDERED: Promethazine HCl 25 MG/ML VIAL IM PRN (11:07)
[2023-05-12] MEDS ORDERED: Dextrose 50% Abboject 50 ML SYRINGE SLOW IVP PRN (11:07)
[2023-05-12] MEDS ORDERED: Glucagon 1 MG/ML KIT IM PRN (11:07)
[2023-05-12] MEDS ORDERED: diphenhydrAMINE 50 MG/ML VIAL IVP PRN (11:07)
[2023-05-12] MEDS ORDERED: hydrALAZINE 20 MG/ML VIAL SLOW IVP PRN (11:07)
[2023-05-12] MEDS ORDERED: Dextrose 5% in Water 1,000 ML IV PRN (11:07)
[2023-05-12] MEDS ORDERED: HumaLOG 300 UNITS/3 ML VIAL SC PRN (11:07)
[2023-05-12] MEDS ORDERED: Hydrocodone-Acetamin 15 ML UDCUP PO PRN (11:07)
[2023-05-12] MEDS ORDERED: Ipratropium/Albuterol 3 ML NEB NEB PRN (11:07)
[2023-05-12] MEDS ORDERED: Buprenorphine HCl 2 MG SL TAB PO SCH ×2 (12:45→15:00)
[2023-05-12] MEDS: Acetaminophen 325 MG/10.15 ML UDCUP PO SCH ×3 (15:06→22:20)
[2023-05-12] MEDS: Buprenorphine HCl 2 MG SL TAB PO SCH ×2 (15:40→21:31)
[2023-05-12] MEDS: Sodium Chloride 0.9% 1,000 ML IV SCH ×2 (15:49→21:31)
[2023-05-12] MEDS ORDERED: diphenhydrAMINE 25 MG CAP PO PRN (20:10)
[2023-05-12] MEDS ORDERED: Aripiprazole 10 MG TAB PO SCH (21:00)
[2023-05-12] MEDS ORDERED: DULoxetine 30 MG CAP PO SCH (21:00)
[2023-05-13] MEDS: Acetaminophen 325 MG/10.15 ML UDCUP PO SCH (05:32)
[2023-05-13] MEDS: Ketorolac Tromethamine 30 MG/ML VIAL IVP PRN ×2 (05:38→14:11)
[2023-05-13] MEDS: Sodium Chloride 0.9% 1,000 ML IV SCH (05:57)
[2023-05-13 06:10] LABS: #Monocytes 0.8 thou/uL (0.11-0.59); #Neutrophils 7.2 thou/uL (1.40-6.50); %Basophils 0.1 % (0.0-1.0); %Eosinophils 0.3 % (0.0-10.0); %Lymphocytes 12.2 % (21.0-51.0); %Monocytes 8.5 % (0.0-10.0); %Neutrophils 78.3 % (42.0-75.0); Hemoglobin 13.3 g/dL (14.0-18.0); Mean Corpuscular Hemoglobin 30.4 pg (27.0-31.0); Mean Corpuscular Volume 86.8 fl (78.0-98.0); Mean Platelet Volume 10.3 fL (7.4-10.4); Platelet Count 168 10x3/uL (130-400); RBC Distribution Width 11.5 % (11.5-14.5); Red Blood Cell (RBC) Count 4.38 mill/uL (4.70-6.10); White Blood Cell (WBC) Count 9.3 10x3/uL (4.8-10.8)
[2023-05-13 06:33] LABS: Anion Gap 11 mmol/L (10-20); BUN (Urea Nitrogen) 11 mg/dL (8.9-20.6); Calc. Creatinine Clearance 192 mL/min (70-130); Calcium 8.4 mg/dL (7.8-10.44); Carbon Dioxide 24 mmol/L (22-29); Chloride 101 mmol/L (98-107); Estimated GFR 112; Glucose 220 mg/dL (70-105); Potassium 4.4 mmol/L (3.5-5.1); Sodium 132 mmol/L (136-145)
[2023-05-13] MEDS ORDERED: Levothyroxine Sodium 25 MCG TAB PO SCH ×2 (09:00)
[2023-05-13] MEDS ORDERED: Losartan 25 MG TAB PO SCH (09:00)
[2023-05-13] MEDS ORDERED: Pantoprazole 40 MG VIAL IVP SCH (09:00)
[2023-05-13] MEDS: Buprenorphine HCl 2 MG SL TAB PO SCH (09:05)
[2023-05-13 12:39] VITALS: BP 138/92; TEMP 98.5
[2023-05-13] MEDS ORDERED: Buprenorphine HCl 2 MG SL TAB PO SCH (15:00)
== END 2023-05-13 16:15 | disposition home or self-care (01) | DRG 621 ==
LOC: SURG A 05-12 05:48 → SJJU 05-12 15:05
PROVIDERS: ADMIT Surgery; ATTEND Surgery
PROC: 0D164ZA Bypass Stomach to Jejunum, Percutaneous Endoscopic Approach (ICD-10-PCS; principal; 2023-05-12)
PROC: 8E0W4CZ Robotic Assisted Procedure of Trunk Region, Percutaneous Endoscopic Approach (ICD-10-PCS; 2023-05-12)
DX: E66.01 Morbid (severe) obesity due to excess calories (principal); Z68.36 Body mass index [BMI] 36.0-36.9, adult; K21.9 Gastro-esophageal reflux disease without esophagitis; E11.9 Type 2 diabetes mellitus without complications; F41.9 Anxiety disorder, unspecified; G89.29 Other chronic pain; M10.9 Gout, unspecified; Z98.890 Other specified postprocedural states; Z90.49 Acquired absence of other specified parts of digestive tract; Z88.2 Allergy status to sulfonamides; Z88.5 Allergy status to narcotic agent
CPT/HCPCS: 36415; 36416; 80048; 85025; C9113; J0571; J1100; J1170; J1200; J1644; J1650; J1885; J2250; J2270; J2405; J2704; J3010; J3490; J7050

== ENCOUNTER 2023-05-19 09:46 | Day surgery (SDC) | payer OTHER ==
[2023-05-19] MEDS ORDERED: Ondansetron PF 4 MG/2 ML Vial IVP SCH (10:00)
[2023-05-19] MEDS ORDERED: Sodium Chloride 0.9% 1,000 ML IV SCH (10:00)
[2023-05-19 10:16] VITALS: BP 114/67; TEMP 98.2
== END 2023-05-19 11:48 | disposition home or self-care (01) ==
LOC: ONC/OP 09:46
PROVIDERS: ATTEND Surgery
DX: E86.0 Dehydration (principal); Z88.2 Allergy status to sulfonamides; Z88.5 Allergy status to narcotic agent; Z88.8 Allergy status to other drugs, medicaments and biological substances
CPT/HCPCS: 96360; J3411; J7050

== ENCOUNTER 2023-07-28 18:45 | Emergency (ER) | payer OTHER ==
[2023-07-28 19:44] LABS: #Eosinphils 0.1 thou/uL (0.0-0.7); #Monocytes 0.7 thou/uL (0.11-0.59); %Basophils 0.4 % (0.0-1.0); %Eosinophils 0.8 % (0.0-10.0); %Lymphocytes 22.7 % (21.0-51.0); %Monocytes 8.2 % (0.0-10.0); %Neutrophils 67.6 % (42.0-75.0); Hematocrit 42.8 % (42.0-52.0); Hemoglobin 14.9 g/dL (14.0-18.0); Mean Corpuscular HGB CONC 34.8 g/dL (32.0-36.0); Mean Corpuscular Hemoglobin 29.9 pg (27.0-31.0); Mean Corpuscular Volume 85.9 fl (78.0-98.0); Mean Platelet Volume 9.7 fL (7.4-10.4); Platelet Count 334 10x3/uL (130-400); RBC Distribution Width 12.6 % (11.5-14.5); Red Blood Cell (RBC) Count 4.98 mill/uL (4.70-6.10); White Blood Cell (WBC) Count 8.9 10x3/uL (4.8-10.8)
[2023-07-28 20:09] LABS: Troponin I Less than 0.010 ng/mL (< 0.028)
[2023-07-28 20:18] LABS: ALT (SGPT) 45 U/L (8-55); AST (SGOT) 32 U/L (5-34); Albumin 4.9 g/dL (3.5-5.0); Alkaline Phosphatase 91 U/L (40-110); Anion Gap 16 mmol/L (10-20); BUN (Urea Nitrogen) 10 mg/dL (8.9-20.6); Bilirubin, Total 0.6 mg/dL (0.2-1.2); Calc. Creatinine Clearance 0 mL/min (70-130); Calcium 9.6 mg/dL (7.8-10.44); Carbon Dioxide 22 mmol/L (22-29); Chloride 103 mmol/L (98-107); Estimated GFR 96; Globulin 3.1 g/dL (2.4-3.5); Glucose 134 mg/dL (70-105); Lipase 30 U/L (8-78); Potassium 3.8 mmol/L (3.5-5.1); Sodium 137 mmol/L (136-145)
[2023-07-28] MEDS ORDERED: Ketorolac Tromethamine 30 MG/ML VIAL ONE (21:33)
[2023-07-28] MEDS ORDERED: LORazepam 2 MG/ML SYR.(CARPUJECT) ONE ×2 (21:33→22:31)
[2023-07-28] MEDS ORDERED: Famotidine/PF 20 mg/2ml Vial ONE (23:48)
[2023-07-29 00:01] LABS: Troponin I 0.016 ng/mL (< 0.028)
[2023-07-29] MEDS ORDERED: fentaNYL 50 mcg/mL 1 mL Vial ONE (01:18)
== END 2023-07-29 01:41 | disposition home or self-care (01) ==
LOC: ERS 18:45
DX: R10.9 Unspecified abdominal pain (principal); K21.9 Gastro-esophageal reflux disease without esophagitis; E11.9 Type 2 diabetes mellitus without complications; F17.220 Nicotine dependence, chewing tobacco, uncomplicated
CPT/HCPCS: 71045; 74177; 80053; 83690; 84484 ×2; 85025; 85379; 93005; J2060; J3010; 36415; 96361; 96374; 96375; 96376; J1885; S0028

== ENCOUNTER 2023-09-23 04:31 | Emergency (ER) | payer OTHER ==
[2023-09-23 04:56] LABS: #Basophils 0.1 thou/uL (0.0-0.2); #Eosinphils 0.2 thou/uL (0.0-0.7); #Monocytes 0.7 thou/uL (0.11-0.59); #Neutrophils 5.1 thou/uL (1.40-6.50); %Basophils 0.6 % (0.0-1.0); %Eosinophils 1.9 % (0.0-10.0); %Lymphocytes 29.1 % (21.0-51.0); %Monocytes 7.8 % (0.0-10.0); %Neutrophils 60.2 % (42.0-75.0); Hematocrit 39.9 % (42.0-52.0); Mean Corpuscular HGB CONC 35.1 g/dL (32.0-36.0); Mean Corpuscular Hemoglobin 30.6 pg (27.0-31.0); Mean Corpuscular Volume 87.3 fl (78.0-98.0); Mean Platelet Volume 9.5 fL (7.4-10.4); Platelet Count 298 10x3/uL (130-400); RBC Distribution Width 12.5 % (11.5-14.5); Red Blood Cell (RBC) Count 4.57 mill/uL (4.70-6.10); White Blood Cell (WBC) Count 8.4 10x3/uL (4.8-10.8)
[2023-09-23] MEDS ORDERED: Ondansetron ODT 4 MG TAB ONE (05:01)
[2023-09-23 05:22] LABS: ALT (SGPT) 39 U/L (8-55); AST (SGOT) 23 U/L (5-34); Albumin 4.6 g/dL (3.5-5.0); Alkaline Phosphatase 90 U/L (40-110); Anion Gap 14 mmol/L (10-20); BUN (Urea Nitrogen) 11 mg/dL (8.9-20.6); Bilirubin, Total 0.4 mg/dL (0.2-1.2); Calc. Creatinine Clearance 0 mL/min (70-130); Calcium 9.1 mg/dL (7.8-10.44); Carbon Dioxide 25 mmol/L (22-29); Chloride 104 mmol/L (98-107); Estimated GFR 100; Globulin 2.5 g/dL (2.4-3.5); Glucose 130 mg/dL (70-105); Lipase 44 U/L (8-78); Potassium 3.2 mmol/L (3.5-5.1); Protein, Total 7.1 g/dL (6.0-8.3); Sodium 140 mmol/L (136-145); Troponin I 0.012 ng/mL (< 0.028)
[2023-09-23] MEDS ORDERED: Lorazepam 1 MG TAB ONE (06:09)
[2023-09-23 06:42] LABS: Magnesium 2.1 mg/dL (1.6-2.6)
== END 2023-09-23 06:14 | disposition home or self-care (01) ==
LOC: ERS 04:31
DX: R07.89 Other chest pain (principal); K21.9 Gastro-esophageal reflux disease without esophagitis; E11.9 Type 2 diabetes mellitus without complications; Z79.899 Other long term (current) drug therapy
CPT/HCPCS: 36415; 71045; 80053; 83690; 83735; 84484; 85025; 93005; Q0162

== ENCOUNTER 2023-10-05 02:06 | Day surgery (SDC) | payer OTHER ==
[2023-10-05] MEDS ORDERED: Ketorolac Tromethamine 30 MG/ML VIAL ONE ×2 (03:10→09:00)
[2023-10-05] MEDS ORDERED: Ondansetron PF 4 MG/2 ML Vial ONE ×2 (03:10→09:00)
[2023-10-05 04:04] LABS: #Eosinphils 0.2 thou/uL (0.0-0.7); #Neutrophils 9.5 thou/uL (1.40-6.50); %Basophils 0.2 % (0.0-1.0); %Eosinophils 1.8 % (0.0-10.0); %Lymphocytes 15.8 % (21.0-51.0); %Monocytes 7.8 % (0.0-10.0); %Neutrophils 74.1 % (42.0-75.0); Hematocrit 39.4 % (42.0-52.0); Hemoglobin 14.1 g/dL (14.0-18.0); Mean Corpuscular HGB CONC 35.8 g/dL (32.0-36.0); Mean Corpuscular Hemoglobin 30.9 pg (27.0-31.0); Mean Corpuscular Volume 86.2 fl (78.0-98.0); Mean Platelet Volume 9.9 fL (7.4-10.4); Platelet Count 329 10x3/uL (130-400); RBC Distribution Width 12.2 % (11.5-14.5); Red Blood Cell (RBC) Count 4.57 mill/uL (4.70-6.10); White Blood Cell (WBC) Count 12.8 10x3/uL (4.8-10.8)
[2023-10-05] MEDS ORDERED: Morphine 4 MG/ML VIAL ONE ×2 (04:26→06:07)
[2023-10-05 04:29] LABS: ALT (SGPT) 36 U/L (8-55); AST (SGOT) 25 U/L (5-34); Albumin 4.9 g/dL (3.5-5.0); Alkaline Phosphatase 90 U/L (40-110); Anion Gap 17 mmol/L (10-20); BUN (Urea Nitrogen) 15 mg/dL (8.9-20.6); Bilirubin, Total 0.6 mg/dL (0.2-1.2); Calc. Creatinine Clearance 0 mL/min (70-130); Calcium 9.8 mg/dL (7.8-10.44); Carbon Dioxide 26 mmol/L (22-29); Chloride 100 mmol/L (98-107); Estimated GFR 110; Globulin 2.9 g/dL (2.4-3.5); Glucose 110 mg/dL (70-105); Lipase 26 U/L (8-78); Protein, Total 7.8 g/dL (6.0-8.3); Sodium 139 mmol/L (136-145)
[2023-10-05] MEDS ORDERED: fentaNYL 50 mcg/mL 1 mL Vial ONE ×6 (04:46→11:04)
[2023-10-05] MEDS ORDERED: Piperacillin/Tazobactam 4.5 GM VIAL ONE (04:47)
[2023-10-05 05:00] LABS: Bacteria/HPF None Seen HPF (None Seen); Bilirubin Negative (Negative); Blood, Urine Negative (Negative); CAUTI Indications for Culture Pelvic or flank pain; Clarity Clear (Clear); Glucose, Urine (Dipstick) Greater than 1000 mg/dL (Negative); Ketone, Urine Negative (Negative); Leukocyte Negative Leu/uL (Negative); Nitrite Negative (Negative); Protein, Urine (Dipstick) Negative (Neg-Trace); RBC/HPF 0-3 HPF (0-3); Squamous Epithelial None Seen HPF (0-3); Urobilinogen Normal mg/dL (Less than 2); WBC/HPF None Seen HPF (0-3); pH, Urine 6.5 (5.0-9.0)
[2023-10-05 05:03] LABS: Specific Gravity, Urine 1.057 (1.002-1.036)
[2023-10-05 05:04] LABS: Urine Culture Reflex No No
[2023-10-05] MEDS ORDERED: LORazepam 2 MG/ML SYR.(CARPUJECT) ONE (05:07)
[2023-10-05] MEDS ORDERED: Magnesium 5 GM/10 ML VIAL ONE (07:03)
[2023-10-05] MEDS ORDERED: fentaNYL PF 100 MCG/2 ML SYRINGE ONE (07:03)
[2023-10-05] MEDS ORDERED: EPINEPHrine 1 MG/ML VIAL ONE (08:33)
[2023-10-05] MEDS ORDERED: Bupivacaine 0.25% HCL 30 ML VIAL ONE (08:34)
[2023-10-05] MEDS ORDERED: PROPOFOL 200 MG/20 ML VIAL ONE (09:00)
[2023-10-05] MEDS ORDERED: Glycopyrrolate 0.2 MG/ML 5 ML SYRINGE ONE (09:00)
[2023-10-05] MEDS ORDERED: Rocuronium Bromide 10 MG/ML (10ML VIAL) ONE (09:00)
[2023-10-05] MEDS ORDERED: Lidocaine 1% PF 5 ML VIAL ONE (09:00)
[2023-10-05] MEDS ORDERED: NEOSTIGMINE 3 MG/3 ML SYR 3 MG/3 ML SYRINGE ONE (09:00)
[2023-10-05] MEDS ORDERED: Ondansetron HCl/PF 4 MG/2 ML Vial IVP PRN (09:29)
[2023-10-05] MEDS ORDERED: Meperidine HCl/PF 25 MG/ML VIAL SLOW IVP PRN (09:29)
[2023-10-05] MEDS ORDERED: Promethazine HCl 25 MG/ML VIAL IM PRN (09:29)
[2023-10-05] MEDS ORDERED: HYDROmorphone 2 MG/ML VIAL SLOW IVP PRN (09:29)
[2023-10-05] MEDS ORDERED: Acetaminophen/Codeine 30-300mg Tablet PO PRN (10:18)
[2023-10-05] MEDS ORDERED: Iopamidol 370 76% 100 ML VIAL ONE (14:32)
== END 2023-10-05 12:13 | disposition home or self-care (01) ==
LOC: ERS 02:06 → SDC 06:53
PROVIDERS: ATTEND Specialist
PROC: 0DTJ4ZZ Resection of Appendix, Percutaneous Endoscopic Approach (ICD-10-PCS; principal; 2023-10-05)
DX: K35.80 Unspecified acute appendicitis (principal); E11.9 Type 2 diabetes mellitus without complications; Z79.84 Long term (current) use of oral hypoglycemic drugs; Z87.891 Personal history of nicotine dependence; Z88.2 Allergy status to sulfonamides; Z88.1 Allergy status to other antibiotic agents; Z88.5 Allergy status to narcotic agent
CPT/HCPCS: 44970; 74177; 80053; 81001; 83605; 83690; 85025; A4314; J0171; J2060; J3010; 36415; 88304; 96365; 96375; 96376; A4649; J1885; J2270; J2405; J2543; J2704; J3475; Q9967; S0020

== ENCOUNTER 2023-11-29 08:11 | Emergency (ER) | payer OTHER | END 2023-11-29 09:00 | disposition home or self-care (01) | LOC: ERS 08:11 | DX: U07.1 COVID-19 (principal); E11.9 Type 2 diabetes mellitus without complications | CPT/HCPCS: 36416; 99284 ==